=== PATIENT | male | born 1980 | race Caucasian/White ===

== ENCOUNTER 2023-01-21 14:40 | Emergency (ER) | payer OTHER ==
[~2023-01-21] VITALS: Ht 172.7 cm; Wt 81.6 kg
[2023-01-21 15:13] VITALS: BP_SYST 140; PULSE 69; RESP 16; TEMP 97.8; O2SAT 99
[2023-01-21] MEDS ORDERED: ONDANSETRON 4 MG ODT TAB PO ONE (15:45)
[2023-01-21] MEDS ORDERED: HYDROcodone/ACETAMIN 10-325 MG TAB PO ONE (15:45)
[2023-01-21] MEDS ORDERED: HYDR-3927 PO (17:20)
[2023-01-21] MEDS ORDERED: IBUP-1971 PO (17:20)
[2023-01-21 17:31] VITALS: BP_SYST 126; PULSE 62; RESP 16; TEMP 97.8; O2SAT 99
== END 2023-01-21 17:31 | disposition home or self-care (01) ==
LOC: SED 14:40
DX: S86.012A Strain of left Achilles tendon, initial encounter (principal); Z79.899 Other long term (current) drug therapy; W21.05XA Struck by basketball, initial encounter; Y93.67 Activity, basketball; Y92.89 Other specified places as the place of occurrence of the external cause; Y99.8 Other external cause status
CPT/HCPCS: 99284; 73720; Q0162